=== PATIENT | male | born 1965 | race Caucasian/White ===

== ENCOUNTER 2022-05-22 10:13 | Emergency (ER) | payer OTHER ==
[~2022-05-22] VITALS: Ht 177.8 cm; Wt 83.9 kg
[2022-05-22 10:15] VITALS: BP 140/84
--- NOTE | 2022-05-22 10:18 | NUR ---
PT BROUGHT TO ROOM FROM TRIAGE, REPORT RECEIVED, CARE ASSUMED, PT ASSESSED. PT ATTACHED TO PULSE OX. PT ALERT, RESP EASY, SWELLING AROUND BILATERAL EYES, PT DENIES PAIN DENIES SOB OR DIFF SWALLOWING
--- NOTE | 2022-05-22 10:50 | NUR ---
DR TYSON AT BEDSIDE
[2022-05-22] MEDS ORDERED: DEXAMETHASONE 10 MG/ML VIAL IM ONE (11:20)
[2022-05-22] MEDS ORDERED: FAMOTIDINE 20 MG TAB PO ONE (11:20)
[2022-05-22] MEDS ORDERED: diphenhydrAMINE 50 MG/ML VIAL IM ONE (11:20)
--- NOTE | 2022-05-22 11:45 | NUR ---
PT MEDICATED, RESP EASY, MM PINK, NO APPARENT DISTRESS, STATUS UNCHANGED, PULSE OX CONTINUOUS
[2022-05-22] MEDS ORDERED: DIPH25TA53 PO (13:05)
[2022-05-22] MEDS ORDERED: FAMO-92 PO (13:05)
[2022-05-22 13:25] VITALS: BP 112/70
--- NOTE | 2022-05-22 13:27 | NUR ---
Patient discharged with v/s stable. Written and verbal after care instructions given and explained. Patient alert, oriented and verbalized understanding of instructions. Ambulatory with steady gait. All questions addressed prior to discharge. ID band removed. Patient advised to follow up with PMD. Rx of BENADRYL AND FAMOTIDINE given. Patient educated on indication of medication including possible reaction and side effects. Opportunity to ask questions provided and answered.
== END 2022-05-22 13:27 | disposition home or self-care (01) ==
LOC: MED 10:13
DX: R09.81 Nasal congestion (principal); T39.015A Adverse effect of aspirin, initial encounter; Y92.89 Other specified places as the place of occurrence of the external cause
CPT/HCPCS: 96372; 99284; J1100; J1200